=== PATIENT | female | born 1955 | race Caucasian/White ===

== ENCOUNTER 2023-08-03 17:47 | Outpatient (OUT) | payer OTHER, MEDICARE, SELFPAY ==
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
== END 2023-08-03 17:48 | disposition home or self-care (01) ==
PROVIDERS: PCP Internal Medicine; Visit Provider Internal Medicine
DX: M54.2 Cervicalgia (principal); M79.604 Pain in right leg
CPT/HCPCS: 72040; 72100

== ENCOUNTER 2025-05-01 07:16 | Outpatient (OUT) | payer MEDICARE, SELFPAY ==
--- NOTE | 2025-05-01 07:19 | MM_ITS ---
Patient Name: CHARLEEN HORN MR#: [id number] : 1955 Exam Date: 05/01/2025 Ordering Doctor: DR RONALD LOCKHART RADIOLOGY REPORT PROCEDURE: MM TOMOSYNTHESIS SCREENING BI COMPARISON: MG MAMM RT DIAG FU, 01/28/2022. MG MAMM SCREEN 3D SEJAL CAD, 01/14/2022. INDICATIONS: Screening Calculator Name NCI Breast Cancer Risk Assessment Tool 5 Year Breast Cancer Risk Not Reported. Lifetime Breast Cancer Risk Not Reported. Personal Breast Cancer No Personal Ovarian Cancer No Treatments None Family Cancers None LOCATION: The [facility] BREAST COMPOSITION: The breasts are heterogeneously dense, which may obscure small masses. FINDINGS: DIAGNOSTIC CATEGORY 1--NEGATIVE. RIGHT BREAST: No significant suspicious finding. LEFT BREAST: No significant suspicious finding. RECOMMENDATIONS: ROUTINE MAMMOGRAM AND CLINICAL EVALUATION IN 12 MONTHS. PLEASE NOTE: A NORMAL MAMMOGRAM DOES NOT EXCLUDE THE POSSIBILITY OF BREAST CANCER. A CLINICALLY SUSPICIOUS PALPABLE LUMP SHOULD BE BIOPSIED. Dictated by: Jose Dan MD on 05/01/2025 at 13:43 Approved by: Jose Dan MD on 05/01/2025 at 13:48
== END 2025-05-01 07:17 | disposition home or self-care (01) ==
LOC: MAMMO 07:16
PROVIDERS: PCP Family Medicine; Visit Provider Family Medicine
DX: Z12.31 Encounter for screening mammogram for malignant neoplasm of breast (principal)
CPT/HCPCS: 77063; 77067